=== PATIENT | male | born 1965 ===

== ENCOUNTER 2017-07-21 10:22 | Inpatient (IN) | payer SELFPAY ==
[2017-07-21 10:26] VITALS: BMI 33.1
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
[2017-07-21 11:19] LABS: BASO # 0.1 K/uL (0.0-0.2); BASO % 0.5 % (0.0-2.0); EOS % 0.4 % (0.0-4.0); HEMATOCRIT 46.6 % (35.0-51.0); LYMPH # 2.8 K/uL (1.0-4.3); LYMPH % 25.1 % (20.0-40.0); MEAN CELL VOLUME 79.9 fL (80.0-94.0); MEAN CORPUSCULAR HEMOGLOBIN 26.1 pg (27.0-31.0); MEAN CORPUSCULAR HGB CONC 32.7 g/dL (33.0-37.0); MEAN PLATELET VOLUME 8.8 fL (7.2-11.7); MONO # 0.4 K/uL (0.0-0.8); MONO % 3.9 % (0.0-10.0); RED CELL DISTRIBUTION WIDTH 14.4 % (11.5-14.5)
[2017-07-21 11:26] LABS: ALB/GLOB RATIO 1.4 (1.0-2.1); ALKALINE PHOSPHATASE 92 U/L (38-126); ALT/SGPT 29 U/L (21-72); AST/SGOT 21 U/L (17-59); BILIRUBIN,TOTAL 0.8 mg/dL (0.2-1.3); BLOOD UREA NITROGEN 13 mg/dL (9-20); CALCIUM 9.4 mg/dl (8.6-10.4); CARBON DIOXIDE 28 mmol/L (22-30); CHLORIDE 98 mmol/L (98-107); CHOLESTEROL 135 mg/dL (0-199); GFR AFRICAN-AMERICAN > 60; GLUCOSE,RANDOM 251 mg/dL (75-110); POTASSIUM 3.6 mmol/L (3.6-5.2); SODIUM 139 mmol/L (132-148); TOTAL PROTEIN 6.9 g/dL (6.3-8.3)
[2017-07-21 11:31] LABS: INR 0.9
[2017-07-21] MEDS ORDERED: Iodixanol 320 MG/ML 100 ML BOTTLE IV ONE ×2 (12:00→14:31)
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
[2017-07-21] MEDS: Sodium Chloride 0.9% 1,000 ML IV SCH ×2 (15:00→22:23)
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
--- NOTE | 2017-07-21 16:10 | CT ---
PROCEDURE: CT Angiography of the Brain. HISTORY: cva expressive aphasia COMPARISON: None available. TECHNIQUE: CT angiography of the intracranial and cervical arteries was performed. Coronal and sagittal maximum intensity projection reformated images were generated. This CT exam was performed using one or more of the following dose reduction techniques: Automated exposure control, adjustment of the mA and/or kV according to patient size, and/or use of iterative reconstruction technique. FINDINGS: INTERNAL CEREBRAL ARTERIES: The bilateral internal carotid artery is appear widely patent from their origins to bifurcations bilaterally.. The skull base, petrous, cavernous and supraclinoid segments are bilaterally widely patient. Bilateral Common Carotid Arteries The bilateral common carotid arteries are will widely patent from their origins to bifurcations including the bulbar segments. ANTERIOR CEREBRAL ARTERIES: Unremarkable. A1 and A2 segments are widely patent. Smaller distal branches unremarkable, as visualized. MIDDLE CEREBRAL ARTERIES: Unremarkable. M1 and M2 segments are widely patent. Perisylvian branches grossly symmetric. POSTERIOR CIRCULATION: Basilar Artery: Unremarkable. Distal Vertebral Arteries: Unremarkable. The cervical bilateral vertebral artery segments appear patent though artifacts limit the mid cervical evaluation the right-sided reticular. Posterior Cerebral Arteries: Unremarkable. Posterior Inferior Cerebellar Arteries: The left PICA exhibits persistent configuration with the right PICA unremarkable. ANEURYSM/ VASCULAR MALFORMATIONS: None. OTHER FINDINGS: None. IMPRESSION: Artifacts limit evaluation lower cervical right vertebral artery somewhat however the right vertebral artery does not appear occluded. The vertebrobasilar system is left dominant and the remainder of the cervical and intracranial CT angiography is unremarkable.
[2017-07-21] MEDS ORDERED: Labetalol 25mg/5ml Syringe IVP ONE (16:45)
[2017-07-21] MEDS: levETIRAcetam 1,000 MG in Sodium Chloride 0.9% 100 ML IVPB ONE ×2 (16:51→18:23)
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
[2017-07-21] MEDS: (Novolog) Insulin Aspart, Recombinant 100 u/ml 10 ml vial SC SCH (19:42)
[2017-07-22] MEDS: (Novolog) Insulin Aspart, Recombinant 100 u/ml 10 ml vial SC SCH ×4 (01:27→17:56)
[2017-07-22 05:51] LABS: BASO # 0.1 K/uL (0.0-0.2); BASO % 0.8 % (0.0-2.0); HEMATOCRIT 45.9 % (35.0-51.0); LYMPH # 2.7 K/uL (1.0-4.3); LYMPH % 17.5 % (20.0-40.0); MEAN CELL VOLUME 79.1 fL (80.0-94.0); MEAN CORPUSCULAR HEMOGLOBIN 25.9 pg (27.0-31.0); MEAN CORPUSCULAR HGB CONC 32.7 g/dL (33.0-37.0); MEAN PLATELET VOLUME 9.2 fL (7.2-11.7); MONO # 0.7 K/uL (0.0-0.8); MONO % 4.8 % (0.0-10.0); WHITE BLOOD COUNT 15.2 K/uL (4.8-10.8)
[2017-07-22 06:16] LABS: ALB/GLOB RATIO 1.5 (1.0-2.1); ALKALINE PHOSPHATASE 84 U/L (38-126); ALT/SGPT 28 U/L (21-72); AST/SGOT 11 U/L (17-59); BILIRUBIN,TOTAL 1.1 mg/dL (0.2-1.3); BLOOD UREA NITROGEN 16 mg/dL (9-20); CALCIUM 8.9 mg/dl (8.6-10.4); CARBON DIOXIDE 23 mmol/L (22-30); CHLORIDE 99 mmol/L (98-107); GFR AFRICAN-AMERICAN > 60; GLUCOSE,RANDOM 223 mg/dL (75-110); MAGNESIUM 1.5 mg/dL (1.6-2.3); PHOSPHOROUS 2.5 mg/dL (2.5-4.5); POTASSIUM 3.5 mmol/L (3.6-5.2); SODIUM 135 mmol/L (132-148); TOTAL PROTEIN 6.3 g/dL (6.3-8.3)
[2017-07-22] MEDS: Sodium Chloride 0.9% 1,000 ML IV SCH ×4 (06:20→21:38)
--- NOTE | 2017-07-22 09:08 | CT ---
PROCEDURE: CT HEAD WITHOUT CONTRAST. HISTORY: cva COMPARISON: Head CT 07/21/2017 without contrast. TECHNIQUE: Axial computed tomography images were obtained through the head/brain without intravenous contrast. Radiation dose: Total exam DLP = 1201 mGy-cm. This CT exam was performed using one or more of the following dose reduction techniques: Automated exposure control, adjustment of the mA and/or kV according to patient size, and/or use of iterative reconstruction technique. FINDINGS: HEMORRHAGE: There is now a small intraparenchymal hemorrhage identified in the posterior left occipital lobe without significant mass effect related. The collection measures 3.0 x 1.5 x 1.5 cm (traverse by anteroposterior by superoinferior dimensions), less than 5 cc. Trace local edema is identified. BRAIN: Diffuse chronic microangiopathy are reiterated as well as a small prior infarct left frontal lobe laterally near the vertex. No definite interval cortical edema is appreciate this time. No suspicious extra-axial fluid collection is noted. No midline shift. VENTRICLES: Unremarkable. No hydrocephalus. CALVARIUM: Unremarkable. PARANASAL SINUSES: Mild multifocal ethmoid sinus disease appreciated. MASTOID AIR CELLS: Unremarkable as visualized. No inflammatory changes. OTHER FINDINGS: None. IMPRESSION: 1. An small, interval intraparenchymal hemorrhage identified the left occipital lobe without significant mass effect related. Trace peripheral edema is noted. 2. Mild chronic microangiopathy identified as well as small chronic infarct left frontal lobe. Findings discussed with Dr. Geri barber 07/22/2017 at 8:50 a.m. with written down and read back verification.
[2017-07-22] MEDS: Magnesium Sulfate 1 gm in D5W 1 GM/100 ML BAG IVPB SCH ×2 (09:11→09:42)
[2017-07-22] MEDS ORDERED: levETIRAcetam 500 MG in Sodium Chloride 0.9% 100 ML IVPB SCH (10:00)
--- NOTE | 2017-07-22 10:40 | CP.PCM.PN ---
Subjective - Date & Time of Evaluation Date of Evaluation: 07/22/17 Time of Evaluation: 10:39 - Subjective Subjective: reviewed CT small ICH left parietal occipital lobe no mass effect At this time no indication for neurosurgical involvment If anything changes recall stat Objective - Vital Signs/Intake and Output Vital Signs (last 24 hours): Temp Pulse Resp BP Pulse Ox 98.2 F 56 L 18 144/72 97 07/22/17 08:00 07/22/17 10:00 07/22/17 10:00 07/22/17 09:46 07/22/17 10:00 Intake and Output: 07/22/17 07/22/17 06:59 18:59 Intake Total 1500 650 Output Total 1700 0 Balance -200 650 - Medications Medications: Current Medications Sodium Chloride (Sodium Chloride 0.9%) 1,000 mls @ 125 mls/hr IV .Q8H [facility] Last Admin: 07/22/17 06:20 Dose: 125 mls/hr Levetiracetam 750 mg/ Sodium (Chloride) 107.5 mls @ 420 mls/hr IVPB Q12H [facility] Last Admin: 07/22/17 10:07 Dose: 420 mls/hr Insulin Aspart (Novolog) 0 unit SC Q6H [facility] PRN Reason: Protocol Last Admin: 07/22/17 06:16 Dose: 2 unit Lisinopril (Zestril) 20 mg PO BID [facility] Last Admin: 07/22/17 09:44 Dose: Not Given Ondansetron HCl (Zofran Inj) 4 mg IVP Q4H PRN PRN Reason: Nausea/Vomiting Last Admin: 07/21/17 20:26 Dose: 4 mg Rosuvastatin Calcium (Crestor) 40 mg PO HS [facility] - Labs Labs: 07/22/17 05:45 07/22/17 05:45 PT 10.1 SECONDS (9.7-12.2) 07/21/17 11:05 INR 0.9 07/21/17 11:05 APTT 29 SECONDS (21-34) 07/21/17 11:05
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
--- NOTE | 2017-07-22 15:11 | CP.PCM.PN ---
Subjective - Date & Time of Evaluation Date of Evaluation: 07/22/17 Time of Evaluation: 11:00 - Subjective Subjective: Patient seen and examined in ICU. Patient appears confused. Family is present at bedside. Objective - Vital Signs/Intake and Output Vital Signs (last 24 hours): Temp Pulse Resp BP Pulse Ox 97.9 F 59 L 18 150/76 94 L 07/22/17 12:00 07/22/17 15:00 07/22/17 15:00 07/22/17 14:45 07/22/17 15:00 Intake and Output: 07/22/17 07/22/17 06:59 18:59 Intake Total 1500 1375 Output Total 1700 400 Balance -200 975 - Medications Medications: Current Medications Famotidine (Pepcid) 20 mg IVP DAILY [facility] Last Admin: 07/22/17 12:57 Dose: 20 mg Sodium Chloride (Sodium Chloride 0.9%) 1,000 mls @ 125 mls/hr IV .Q8H [facility] Last Admin: 07/22/17 12:57 Dose: 125 mls/hr Levetiracetam 750 mg/ Sodium (Chloride) 107.5 mls @ 420 mls/hr IVPB Q12H [facility] Last Admin: 07/22/17 10:07 Dose: 420 mls/hr Insulin Aspart (Novolog) 0 unit SC Q6H [facility] PRN Reason: Protocol Last Admin: 07/22/17 12:09 Dose: 3 unit Lisinopril (Zestril) 20 mg PO BID [facility] Last Admin: 07/22/17 09:44 Dose: Not Given Ondansetron HCl (Zofran Inj) 4 mg IVP Q4H PRN PRN Reason: Nausea/Vomiting Last Admin: 07/21/17 20:26 Dose: 4 mg Rosuvastatin Calcium (Crestor) 40 mg PO HS [facility] - Labs Labs: 07/22/17 05:45 07/22/17 05:45 PT 10.1 SECONDS (9.7-12.2) 07/21/17 11:05 INR 0.9 07/21/17 11:05 APTT 29 SECONDS (21-34) 07/21/17 11:05 - Head Exam Head Exam: ATRAUMATIC, NORMOCEPHALIC - Eye Exam Eye Exam: Normal appearance, PERRL - ENT Exam ENT Exam: Mucous Membranes Moist - Respiratory Exam Respiratory Exam: Clear to Ausculation Bilateral - Cardiovascular Exam Cardiovascular Exam: REGULAR RHYTHM, +S1, +S2 - GI/Abdominal Exam GI & Abdominal Exam: Soft. absent: Tenderness - Extremities Exam Extremities Exam: absent: Pedal Edema - Neurological Exam Neurological Exam: Alert, Altered Additional comments: Limited neurological exam because patient is noncooperative Assessment and Plan (1) Intracranial hemorrhage Assessment & Plan: Repeat CAT scan shows hemorrhage in the occipital region. Neurosurgery consultation was requested by ICU team. Neurosurgery recommends no intervention at this time. I discussed the plan of care with the ICU attending. No emergent intervention needed. Continue to observe. Status: Acute (2) Expressive aphasia Assessment & Plan: Possibly secondary to previous infarct. Continue to monitor. Status: Acute (3) Seizure Assessment & Plan: Patient started on medication for seizures. Possibly patient was noncompliant with the medication prior to this episode of for seizure versus CVA. Status: Acute - Assessment and Plan (Free Text) Plan: I discussed the plan of care with the ICU attending. Continue management as per ICU team.
--- NOTE | 2017-07-22 19:01 | CP.PCM.PN ---
Subjective - Date & Time of Evaluation Date of Evaluation: 07/22/17 Time of Evaluation: 18:56 - Subjective Subjective: Mr. Box was seen and examined today in the ICU at bedside. He continues to be somnolent, but is easily aroused. He follows commands, but inconsistently and has a receptive as well as productive aphasia. Repeat CT head showed a small left occipital hemorrhage. No reported seizure activity. No acute events overnight. Objective - Vital Signs/Intake and Output Vital Signs (last 24 hours): Temp Pulse Resp BP Pulse Ox 98.3 F 62 21 151/78 H 95 07/22/17 16:00 07/22/17 18:50 07/22/17 18:50 07/22/17 18:46 07/22/17 18:50 Intake and Output: 07/22/17 07/22/17 06:59 18:59 Intake Total 1500 1625 Output Total 1700 600 Balance -200 1025 - Medications Medications: Current Medications Famotidine (Pepcid) 20 mg IVP DAILY [facility] Last Admin: 07/22/17 12:57 Dose: 20 mg Sodium Chloride (Sodium Chloride 0.9%) 1,000 mls @ 125 mls/hr IV .Q8H [facility] Last Admin: 07/22/17 17:50 Dose: Not Given Levetiracetam 750 mg/ Sodium (Chloride) 107.5 mls @ 420 mls/hr IVPB Q12H [facility] Last Admin: 07/22/17 10:07 Dose: 420 mls/hr Insulin Aspart (Novolog) 0 unit SC Q6H [facility] PRN Reason: Protocol Last Admin: 07/22/17 17:56 Dose: 2 unit Lisinopril (Zestril) 20 mg PO BID [facility] Last Admin: 07/22/17 17:50 Dose: Not Given Ondansetron HCl (Zofran Inj) 4 mg IVP Q4H PRN PRN Reason: Nausea/Vomiting Last Admin: 07/21/17 20:26 Dose: 4 mg Rosuvastatin Calcium (Crestor) 40 mg PO HS [facility] - Labs Labs: 07/22/17 05:45 07/22/17 05:45 PT 10.1 SECONDS (9.7-12.2) 07/21/17 11:05 INR 0.9 07/21/17 11:05 APTT 29 SECONDS (21-34) 07/21/17 11:05 - Neurological Exam Neurological Exam: Abnormal Gait, Altered, Awake, CN II-XII Intact Neuro motor strength exam: Left Upper Extremity: 5, Right Upper Extremity: 4, Left Lower Extremity: 5, Right Lower Extremity: 4 Additional comments: NIHSS= 8 Assessment and Plan (1) Encephalopathy acute Assessment & Plan: This could be due to seizure and post-ictal state, new area of hemorrhage, new stroke or possibly resurgence of previous stroke symptoms. Will continue conservative management and obtain an MRI of the brain as well as EEG. Status: Acute (2) Intracranial hemorrhage Assessment & Plan: No neurosurgical indication. Clinically stable. Will repeat CT head to evaluate for any progression. Keep HOB elevated, control serum glucose, avoid dextrose containing fluids, NPO till swallow eval, give NS at 100 mL/hr for maintenance. Status: Acute
--- NOTE | 2017-07-22 21:26 | CT ---
EXAM: CT Head Without Intravenous Contrast CLINICAL HISTORY: 52 years old, male; Condition or disease; Other: Bleed; Additional info: F/u intraparyenchymal bleeding TECHNIQUE: Axial computed tomography images of the head/brain without intravenous contrast. All CT scans at this facility use one or more dose reduction techniques, viz.: automated exposure control; ma/kV adjustment per patient size (including targeted exams where dose is matched to indication; i.e. head); or iterative reconstruction technique. Coronal and sagittal reformatted images were created and reviewed. COMPARISON: CT - HEAD W/O CONTRAST 07/22/2017 8:31:32 AM FINDINGS: Brain: Two stable foci of increased attenuation, when compared with 07/22/2017 examination of the head 8:31 AM. The first is located within the left posterior occipital lobe measuring 3 x 1.5 cm, unchanged from prior. The second is located within the right posterior parietal lobe (series 4, image 38) measuring 9 x 8 mm, also unchanged. Age-appropriate periventricular white matter disease. Trace surrounding vasogenic edema. Ventricles: Age-appropriate ventriculomegaly. Bones: No acute displaced fracture. Sinuses: Unremarkable as visualized. No acute sinusitis. Mastoid air cells: Unremarkable as visualized. No mastoid effusion. IMPRESSION: Two stable foci of intracranial hemorrhage, when compared with examination approximately 12 hours earlier, as detailed above. Trace surrounding vasogenic edema.
[2017-07-23] MEDS: (Novolog) Insulin Aspart, Recombinant 100 u/ml 10 ml vial SC SCH ×4 (00:05→18:02)
[2017-07-23] MEDS: Sodium Chloride 0.9% 1,000 ML IV SCH ×2 (05:37→10:25)
[2017-07-23] MEDS ORDERED: (Lantus) Insulin Glargine, Recombinant SC STA (06:01)
[2017-07-23] MEDS ORDERED: (Novolin N) Insulin Human Isophane (NPH) 100 u/ml 10 ml vial SC STA (06:01)
[2017-07-23 06:16] LABS: BASO % 0.1 % (0.0-2.0); LYMPH # 3.4 K/uL (1.0-4.3); LYMPH % 25.1 % (20.0-40.0); MEAN CELL VOLUME 79.9 fL (80.0-94.0); MEAN CORPUSCULAR HEMOGLOBIN 25.9 pg (27.0-31.0); MEAN CORPUSCULAR HGB CONC 32.5 g/dL (33.0-37.0); MEAN PLATELET VOLUME 9.6 fL (7.2-11.7); MONO % 7.5 % (0.0-10.0); NRBC % 0.1 % (0.0-2.0); RED CELL DISTRIBUTION WIDTH 14.3 % (11.5-14.5); WHITE BLOOD COUNT 13.5 K/uL (4.8-10.8)
[2017-07-23 06:40] LABS: ALB/GLOB RATIO 1.3 (1.0-2.1); ALKALINE PHOSPHATASE 91 U/L (38-126); ALT/SGPT 30 U/L (21-72); AST/SGOT 19 U/L (17-59); BILIRUBIN,TOTAL 1.5 mg/dL (0.2-1.3); BLOOD UREA NITROGEN 15 mg/dL (9-20); CALCIUM 8.8 mg/dl (8.6-10.4); CARBON DIOXIDE 24 mmol/L (22-30); CHLORIDE 100 mmol/L (98-107); GFR AFRICAN-AMERICAN > 60; GLUCOSE,RANDOM 209 mg/dL (75-110); PHOSPHOROUS 2.1 mg/dL (2.5-4.5); POTASSIUM 3.4 mmol/L (3.6-5.2); SODIUM 139 mmol/L (132-148); TOTAL PROTEIN 6.5 g/dL (6.3-8.3)
[2017-07-23] MEDS ORDERED: Potassium Phosphate 15 MMOLE in Sodium Chloride 0.9% 250 ML IVPB ONE (09:15)
--- NOTE | 2017-07-23 11:37 | CP.PCM.PN ---
Subjective - Date & Time of Evaluation Date of Evaluation: 07/23/17 Time of Evaluation: 11:30 - Subjective Subjective: Family member present at bedside Patient was somnolent and confused when I saw and examined him. He does wake up and try to follow some simple commands. Per family present this mental status is not changed from yesterday. Patient was able to lift up both legs greater than five seconds. He did not plantar or dorsiflex the feet when asked. He did squeeze my hand on his left hand however was not able to with the right. He was not able to hold his right arm up against gravity on exam - however I later observed him moving his right arm on his own later. He was able to open his eyes but could not say if he had blurry vision or difficulty with seeing. He remains NPO at this time A 3rd head CT was done last night and shows the left occipital area hemmorage is not changed from before 3 x 1.5 cm, and the other area in the right postior parietal lobe being 9 x 8mm Objective - Vital Signs/Intake and Output Vital Signs (last 24 hours): Temp Pulse Resp BP Pulse Ox 98.4 F 65 22 151/71 H 94 L 07/23/17 04:00 07/23/17 07:00 07/23/17 07:00 07/23/17 06:46 07/23/17 07:00 Intake and Output: 07/23/17 07/23/17 06:59 18:59 Intake Total 1500 125 Output Total 1000 Balance 500 125 - Medications Medications: Current Medications Famotidine (Pepcid) 20 mg IVP DAILY [facility] Last Admin: 07/23/17 10:24 Dose: 20 mg Levetiracetam 750 mg/ Sodium (Chloride) 107.5 mls @ 420 mls/hr IVPB Q12H [facility] Last Admin: 07/23/17 10:23 Dose: 420 mls/hr Potassium Phosphate 15 mmole/ (Sodium Chloride) 255 mls @ 42.5 mls/hr IVPB ONCE ONE Stop: 07/23/17 15:14 Last Admin: 07/23/17 10:23 Dose: 42.5 mls/hr Sodium Chloride (Sodium Chloride 0.9%) 1,000 mls @ 50 mls/hr IV .Q20H [facility] Last Admin: 09/04/17 10:25 Dose: 50 mls/hr Insulin Aspart (Novolog) 0 unit SC Q6H [facility] PRN Reason: Protocol Last Admin: 07/23/17 05:20 Dose: 1 unit Lisinopril (Zestril) 20 mg PO BID [facility] Last Admin: 07/23/17 10:24 Dose: 20 mg Nitroglycerin (Nitro-Bid 2% Oint) 1 ea TOP Q6 [facility] Ondansetron HCl (Zofran Inj) 4 mg IVP Q4H PRN PRN Reason: Nausea/Vomiting Last Admin: 07/21/17 20:26 Dose: 4 mg Rosuvastatin Calcium (Crestor) 40 mg PO HS [facility] Last Admin: 07/22/17 21:07 Dose: Not Given - Labs Labs: 07/23/17 06:12 07/23/17 06:12 PT 10.1 SECONDS (9.7-12.2) 07/21/17 11:05 INR 0.9 07/21/17 11:05 APTT 29 SECONDS (21-34) 07/21/17 11:05 - Constitutional Appears: Confused - Eye Exam Eye Exam: absent: EOMI - ENT Exam ENT Exam: Mucous Membranes Moist - Respiratory Exam Respiratory Exam: Clear to Ausculation Bilateral, NORMAL BREATHING PATTERN - Cardiovascular Exam Cardiovascular Exam: REGULAR RHYTHM - GI/Abdominal Exam GI & Abdominal Exam: Soft, Normal Bowel Sounds. absent: Guarding, Rigid, Tenderness - Neurological Exam Neurological Exam: Alert, Altered, Awake. absent: Oriented x3 Neuro motor strength exam: Left Upper Extremity: 4, Right Upper Extremity: 3, Left Lower Extremity: 4, Right Lower Extremity: 4 - Psychiatric Exam Psychiatric exam: Depressed - Skin Skin Exam: Normal Color, Warm Assessment and Plan - Assessment and Plan (Free Text) Assessment: Assessment and Plan (1) Intracranial hemorrhage 07/23: The third CT last night and shows the left occipital area hemmorage is not changed from before 3 x 1.5 cm, and the other area in the right postior parietal lobe being 9 x 8mm, unchanged from previous. Avoid ASA, heparin, lovenox From before neurosurgery consultation was requested by ICU team. Neurosurgery recommends no intervention at this time. (2) Expressive aphasia 07/23: Remains NPO at this time. He is being evaluated by speech and swallow Possibly secondary to previous infarct. Continue to monitor. (3) Seizure Patient started on medication for seizures. Possibly patient was noncompliant with the medication prior to this episode of for seizure versus CVA. (4) Diabetes 07/23: Hgb A1C returned and was 10. Per family it has been higher in the past (5) HTN (6) Encephalopathy acute 07/23: Continue to monitor. This maybe from CVA or from seizure activity. Patient is on keppra at this time
[2017-07-23] MEDS: Nitroglycerin 2% Ointment Foilpak UD TOP SCH ×2 (13:00→18:03)
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
[2017-07-24] MEDS: Nitroglycerin 2% Ointment Foilpak UD TOP SCH ×4 (00:01→17:32)
[2017-07-24] MEDS: (Novolog) Insulin Aspart, Recombinant 100 u/ml 10 ml vial SC SCH ×4 (00:03→17:33)
[2017-07-24] MEDS: Sodium Chloride 0.9% 1,000 ML IV SCH (05:23)
[2017-07-24 06:31] LABS: BASO % 0.1 % (0.0-2.0); HEMATOCRIT 46.2 % (35.0-51.0); LYMPH # 2.9 K/uL (1.0-4.3); LYMPH % 22.5 % (20.0-40.0); MEAN CELL VOLUME 80.4 fL (80.0-94.0); MEAN CORPUSCULAR HEMOGLOBIN 25.9 pg (27.0-31.0); MEAN CORPUSCULAR HGB CONC 32.2 g/dL (33.0-37.0); MEAN PLATELET VOLUME 9.5 fL (7.2-11.7); MONO # 0.9 K/uL (0.0-0.8); MONO % 7.1 % (0.0-10.0); RED CELL DISTRIBUTION WIDTH 14.3 % (11.5-14.5); WHITE BLOOD COUNT 12.7 K/uL (4.8-10.8)
[2017-07-24 07:06] LABS: ALB/GLOB RATIO 1.2 (1.0-2.1); ALKALINE PHOSPHATASE 83 U/L (38-126); ALT/SGPT 24 U/L (21-72); AST/SGOT 17 U/L (17-59); BILIRUBIN,TOTAL 1.8 mg/dL (0.2-1.3); BLOOD UREA NITROGEN 20 mg/dL (9-20); CALCIUM 8.6 mg/dl (8.6-10.4); CARBON DIOXIDE 21 mmol/L (22-30); CHLORIDE 104 mmol/L (98-107); GFR AFRICAN-AMERICAN > 60; GLUCOSE,RANDOM 204 mg/dL (75-110); PHOSPHOROUS 2.7 mg/dL (2.5-4.5); POTASSIUM 3.4 mmol/L (3.6-5.2); SODIUM 140 mmol/L (132-148); TOTAL PROTEIN 6.4 g/dL (6.3-8.3)
[2017-07-24] MEDS ORDERED: Potassium Ch 20mEq in D5W 1,000 ML IV SCH (08:15)
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
--- NOTE | 2017-07-24 12:24 | CARD ---
APPROVED REPORT EXAM: Two-dimensional and M-mode echocardiogram with Doppler and color Doppler. Other Information Quality : FairRhythm : NSR INDICATION CVA/TIA RISK FACTORS Hypertension Diabetes M-Mode DIMENSIONS RVDd0.83 (2.1-3.2cm)Left Atrium (MM)3.30 (2.5-4.0cm) IVSd1.67 (0.7-1.1cm)Aortic Root3.37 (2.2-3.7cm) LVDd5.97 (4.0-5.6cm)Aortic Cusp Exc.2.39 (1.5-2.0cm) PWd1.08 (0.7-1.1cm)FS (%) 30 % LVDs4.20 (2.0-3.8cm)LVEF (%)50 (>50%) Mitral Valve MV E Vdcixbmx38.7cm/sMV A Azaephac35.4cm/sE/A ratio1.2 TDI E/Lateral E'0.0E/Medial E'0.0 Tricuspid Valve TR Peak [id number] Peak [id number] LEFT VENTRICLE The Left Ventricle is borderline dilated. There is moderate concentric left ventricular hypertrophy. Left ventricle systolic function is borderline. There is normal LV segmental wall motion. Transmitral Doppler flow pattern is Grade II-pseudonormal filling dynamics. RIGHT VENTRICLE The right ventricle is normal size. There is normal right ventricular wall thickness. The right ventricular systolic function is normal. ATRIA The left atrium size is normal. The right atrium size is normal. AORTIC VALVE The aortic valve is not well visualized. No aortic regurgitation is present. There is no aortic valvular stenosis. MITRAL VALVE The mitral valve is mildly thickened. TRICUSPID VALVE There is mild pulmonary hypertension. GREAT VESSELS The aortic root displays moderate sclerocalcific changes of the aortic root. The IVC is dilated. PERICARDIAL EFFUSION There is no pericardial effusion. <Conclusion> The Left Ventricle is borderline dilated. There is moderate concentric left ventricular hypertrophy. Left ventricle systolic function is borderline. There is normal LV segmental wall motion. Transmitral Doppler flow pattern is Grade II-pseudonormal filling dynamics. The aortic root displays moderate sclerocalcific changes of the aortic root.
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
[2017-07-24] MEDS ORDERED: Labetalol 25mg/5ml Syringe IVP STA (17:02)
[2017-07-24] MEDS ORDERED: (Lantus) Insulin Glargine, Recombinant SC SCH (22:00)
[2017-07-25] MEDS: Nitroglycerin 2% Ointment Foilpak UD TOP SCH ×4 (06:10→18:10)
[2017-07-25] MEDS: Sodium Chloride 0.9% 1,000 ML IV SCH ×2 (06:10→21:35)
[2017-07-25] MEDS: (Novolog) Insulin Aspart, Recombinant 100 u/ml 10 ml vial SC SCH ×4 (06:10→18:10)
[2017-07-25 06:29] LABS: BASO % 0.1 % (0.0-2.0); EOS % 0.3 % (0.0-4.0); HEMATOCRIT 42.4 % (35.0-51.0); LYMPH # 3.6 K/uL (1.0-4.3); LYMPH % 31.2 % (20.0-40.0); MEAN CELL VOLUME 80.1 fL (80.0-94.0); MEAN CORPUSCULAR HEMOGLOBIN 26.7 pg (27.0-31.0); MEAN CORPUSCULAR HGB CONC 33.4 g/dL (33.0-37.0); MEAN PLATELET VOLUME 9.5 fL (7.2-11.7); MONO # 0.9 K/uL (0.0-0.8); MONO % 7.5 % (0.0-10.0); RED CELL DISTRIBUTION WIDTH 14.4 % (11.5-14.5); WHITE BLOOD COUNT 11.5 K/uL (4.8-10.8)
[2017-07-25 06:42] LABS: ALKALINE PHOSPHATASE 79 U/L (38-126); ALT/SGPT 28 U/L (21-72); AST/SGOT 11 U/L (17-59); BILIRUBIN,TOTAL 1.6 mg/dL (0.2-1.3); BLOOD UREA NITROGEN 23 mg/dL (9-20); CALCIUM 8.7 mg/dl (8.6-10.4); CARBON DIOXIDE 24 mmol/L (22-30); CHLORIDE 106 mmol/L (98-107); GFR AFRICAN-AMERICAN > 60; GLUCOSE,RANDOM 199 mg/dL (75-110); MAGNESIUM 2.2 mg/dL (1.6-2.3); PHOSPHOROUS 3.3 mg/dL (2.5-4.5); POTASSIUM 3.3 mmol/L (3.6-5.2); SODIUM 140 mmol/L (132-148); TOTAL PROTEIN 5.8 g/dL (6.3-8.3)
[2017-07-25 07:02] LABS: ALB/GLOB RATIO 1.2 (1.0-2.1)
[2017-07-25] MEDS ORDERED: Potassium Chloride 20 mEq ER Tab PO ONE ×2 (08:50→13:00)
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
[2017-07-25] MEDS ORDERED: Potassium Chl 40 mEq in D5-1/2 1,000 ML IV SCH (09:45)
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
[2017-07-25] MEDS: (Lantus) Insulin Glargine, Recombinant SC SCH (21:50)
[2017-07-25] MEDS ORDERED: (Novolog) Insulin Aspart, Recombinant 100 u/ml 10 ml vial SC SCH (22:00)
[2017-07-26] MEDS: Nitroglycerin 2% Ointment Foilpak UD TOP SCH ×4 (00:41→18:07)
[2017-07-26 07:45] LABS: BASO % 0.3 % (0.0-2.0); EOS # 0.2 K/uL (0.0-0.7); EOS % 1.7 % (0.0-4.0); HEMATOCRIT 44.8 % (35.0-51.0); LYMPH % 27.6 % (20.0-40.0); MEAN CELL VOLUME 80.5 fL (80.0-94.0); MEAN CORPUSCULAR HEMOGLOBIN 26.4 pg (27.0-31.0); MEAN CORPUSCULAR HGB CONC 32.8 g/dL (33.0-37.0); MEAN PLATELET VOLUME 9.6 fL (7.2-11.7); MONO # 0.8 K/uL (0.0-0.8); MONO % 7.4 % (0.0-10.0); RED CELL DISTRIBUTION WIDTH 14.3 % (11.5-14.5); WHITE BLOOD COUNT 10.9 K/uL (4.8-10.8)
[2017-07-26 08:03] LABS: ALB/GLOB RATIO 1.2 (1.0-2.1); ALKALINE PHOSPHATASE 92 U/L (38-126); ALT/SGPT 26 U/L (21-72); AST/SGOT 13 U/L (17-59); BILIRUBIN,TOTAL 1.9 mg/dL (0.2-1.3); BLOOD UREA NITROGEN 15 mg/dL (9-20); CALCIUM 8.8 mg/dl (8.6-10.4); CARBON DIOXIDE 26 mmol/L (22-30); CHLORIDE 104 mmol/L (98-107); GFR AFRICAN-AMERICAN > 60; GLUCOSE,RANDOM 170 mg/dL (75-110); PHOSPHOROUS 3.2 mg/dL (2.5-4.5); POTASSIUM 3.2 mmol/L (3.6-5.2); SODIUM 143 mmol/L (132-148); TOTAL PROTEIN 6.3 g/dL (6.3-8.3)
[2017-07-26] MEDS: (Novolog) Insulin Aspart, Recombinant 100 u/ml 10 ml vial SC SCH ×4 (09:49→21:52)
[2017-07-26] MEDS: Potassium Chloride 20 mEq ER Tab PO SCH (09:56)
--- NOTE | 2017-07-26 14:00 | CP.PCM.PN ---
<Soraya Mccray - Last Filed: 07/26/17 13:58> Subjective - Date & Time of Evaluation Date of Evaluation: 07/26/17 Time of Evaluation: 07:00 - Subjective Subjective: PGY1-medicine note- Dr. Moss's Service Patient seen and examined at bedside. He appears to have no complaints but on further questioning he is unable to answer many questions due to some expressive aphasia so a full ROS is unobtainable. Patient is able to state his birthday. Patient is unable to say what day it is or where he is. Objective - Vital Signs/Intake and Output Vital Signs (last 24 hours): Temp Pulse Resp BP Pulse Ox 97.4 F L 50 L 20 159/90 H 95 07/26/17 08:00 07/26/17 08:00 07/26/17 08:00 07/26/17 08:00 07/26/17 08:00 Intake and Output: 07/26/17 07/26/17 06:59 18:59 Intake Total 300 Output Total 1600 Balance -1300 - Medications Medications: Current Medications Famotidine (Pepcid) 20 mg IVP DAILY [facility] Last Admin: 07/26/17 09:59 Dose: Not Given Hydralazine HCl (Apresoline) 25 mg PO TID [facility] Hydralazine HCl (Apresoline) 10 mg IVP Q6H PRN PRN Reason: Systolic Blood Pressure Sodium Chloride (Sodium Chloride 0.9%) 1,000 mls @ 50 mls/hr IV .Q20H [facility] Last Admin: 07/25/17 21:35 Dose: Not Given Insulin Aspart (Novolog) 0 unit SC QID [facility] PRN Reason: Protocol Last Admin: 07/26/17 13:24 Dose: 1 unit Insulin Glargine (Lantus) 20 unit SC HS [facility] Last Admin: 07/25/17 21:50 Dose: Not Given Levetiracetam (Keppra) 750 mg PO Q12 [facility] Last Admin: 07/26/17 09:50 Dose: 750 mg Lisinopril (Zestril) 20 mg PO BID [facility] Last Admin: 07/26/17 09:50 Dose: 20 mg Nitroglycerin (Nitro-Bid 2% Oint) 1 ea TOP Q6 [facility] Last Admin: 07/26/17 12:21 Dose: Not Given Ondansetron HCl (Zofran Inj) 4 mg IVP Q4H PRN PRN Reason: Nausea/Vomiting Last Admin: 07/21/17 20:26 Dose: 4 mg Potassium Chloride (K-Dur 20 Meq Er Tab) 40 meq PO DAILY [facility] Last Admin: 07/26/17 09:56 Dose: 40 meq Rosuvastatin Calcium (Crestor) 40 mg PO HS [facility] Last Admin: 07/25/17 21:47 Dose: 40 mg - Labs Labs: 07/26/17 07:35 07/26/17 07:35 PT 10.1 SECONDS (9.7-12.2) 07/21/17 11:05 INR 0.9 07/21/17 11:05 APTT 29 SECONDS (21-34) 07/21/17 11:05 - Constitutional Appears: Well, Non-toxic, No Acute Distress - Head Exam Head Exam: ATRAUMATIC, NORMAL INSPECTION, NORMOCEPHALIC - Eye Exam Eye Exam: EOMI, Normal appearance - ENT Exam ENT Exam: Mucous Membranes Moist - Respiratory Exam Respiratory Exam: Clear to Ausculation Bilateral, NORMAL BREATHING PATTERN. absent: Rales, Rhonchi, Wheezes, Respiratory Distress, Stridor - Cardiovascular Exam Cardiovascular Exam: REGULAR RHYTHM, RRR - GI/Abdominal Exam GI & Abdominal Exam: Soft, Normal Bowel Sounds - Extremities Exam Extremities Exam: Full ROM, Normal Inspection. absent: Pedal Edema - Neurological Exam Neurological Exam: Alert, Awake. absent: Oriented x3 - Psychiatric Exam Psychiatric exam: Normal Affect, Normal Mood - Skin Skin Exam: Intact, Normal Color, Warm Assessment and Plan - Assessment and Plan (Free Text) Assessment: (1) Intracranial hemorrhage 07/26: Remains confused, alert, follows some simple commands. able to state his birthday today. 07/24: At this time the patient still appears confused. Only follows some commands. Appears to have neglect right side. 07/23: The third CT last night and shows the left occipital area hemmorage is not changed from before 3 x 1.5 cm, and the other area in the right postior parietal lobe being 9 x 8mm, unchanged from previous. Avoid ASA, heparin, lovenox From before neurosurgery consultation was requested by ICU team. Neurosurgery recommends no intervention at this time. (2) Expressive aphasia 07/26: for certain simple questions that can be answered yes or no patient answers quickly, for more complex questions it takes the patient time to try to answer. patient unable to answer certain questions 07/24: Speech is still very slow 07/23: Remains NPO at this time. He is being evaluated by speech and swallow Possibly secondary to previous infarct. Continue to monitor. (3) Seizure Patient started on medication for seizures(keppra 750mg po q12) Possibly patient was noncompliant with the medication prior to this episode of for seizure versus CVA. (4) Diabetes 07/23: Hgb A1C-10. Per family it has been higher in the past (5) HTN 07/26: hydralazine 25mg po TID added on 07/26 and hydralazine 10 mg IVP q6h PRN if systolic >160 (added on 07/26) 07/25: Currently stable at this time, systolics mostly 120s to 140s 07/24: Continue to control BP to prevent worsening of hemorrhage (6) Encephalopathy acute 07/26: patient awake and alert but not oriented 07/24: More awake, but still confused 07/23: Continue to monitor. This maybe from CVA or from seizure activity. Patient is on keppra at this time <Reno Moss H - Last Filed: 07/26/17 17:52> Objective - Vital Signs/Intake and Output Vital Signs (last 24 hours): Temp Pulse Resp BP Pulse Ox 98.5 F 57 L 18 157/87 H 100 07/26/17 15:39 07/26/17 15:39 07/26/17 15:39 07/26/17 15:39 07/26/17 15:39 Intake and Output: 07/26/17 07/26/17 06:59 18:59 Intake Total 300 Output Total 1600 Balance -1300 - Medications Medications: Current Medications Famotidine (Pepcid) 20 mg IVP DAILY [facility] Last Admin: 07/26/17 09:59 Dose: Not Given Hydralazine HCl (Apresoline) 25 mg PO TID [facility] Last Admin: 07/26/17 14:24 Dose: 25 mg Hydralazine HCl (Apresoline) 10 mg IVP Q6H PRN PRN Reason: Systolic Blood Pressure >160 Sodium Chloride (Sodium Chloride 0.9%) 1,000 mls @ 50 mls/hr IV .Q20H [facility] Last Admin: 07/25/17 21:35 Dose: Not Given Insulin Aspart (Novolog) 0 unit SC QID [facility] PRN Reason: Protocol Last Admin: 07/26/17 13:24 Dose: 1 unit Insulin Glargine (Lantus) 20 unit SC HS [facility] Last Admin: 07/25/17 21:50 Dose: Not Given Levetiracetam (Keppra) 750 mg PO Q12 [facility] Last Admin: 07/26/17 09:50 Dose: 750 mg Lisinopril (Zestril) 20 mg PO BID [facility] Last Admin: 07/26/17 09:50 Dose: 20 mg Nitroglycerin (Nitro-Bid 2% Oint) 1 ea TOP Q6 [facility] Last Admin: 07/26/17 12:21 Dose: Not Given Ondansetron HCl (Zofran Inj) 4 mg IVP Q4H PRN PRN Reason: Nausea/Vomiting Last Admin: 07/21/17 20:26 Dose: 4 mg Potassium Chloride (K-Dur 20 Meq Er Tab) 40 meq PO DAILY [facility] Last Admin: 07/26/17 09:56 Dose: 40 meq Rosuvastatin Calcium (Crestor) 40 mg PO [facility] Last Admin: 07/25/17 21:47 Dose: 40 mg - Labs Labs: 07/26/17 07:35 07/26/17 07:35 PT 10.1 SECONDS (9.7-12.2) 07/21/17 11:05 INR 0.9 07/21/17 11:05 APTT 29 SECONDS (21-34) 07/21/17 11:05 Attending/Attestation - Attestation I have personally seen and examined this patient.: Yes I have fully participated in the care of the patient.: Yes I have reviewed all pertinent clinical information, including history, physical exam and plan: Yes Notes (Text): 07/26/17 17:52 Medical attending: Patient was seen and examined by me, agrees the above note by medical apparatus model maker. The patient is now out of the ICU on the medical floors. When we saw him he appeared to be very awake and alert. He initially says "I feel fine" however it immediately becomes apparent that the patient has severe memory loss. He is not able to tell us where he is at, and he has difficulty recalling his birthday as well. After a prolonged. He is able to tell us his birthday correctly. And after prolonged period of time he's able to tell us his name correctly as well. It is possible that he now has difficulty trying to find the correct words, so tomorrow we'll see if he is able to write down the correct answers are not. However my suspicion is that he does in fact have some type of encephalopathy following events that led him to come to the hospital. We'll stop with the Gutiérrez catheter today, With regards to his hypertension, we are starting hydralazine 25 by mouth 3 times a day as well as hydralazine 10 mg IV push if greater than 160s systolic. Reviewed and continue with the lisinopril as well thank you Reno Moss
[2017-07-26] MEDS: (Lantus) Insulin Glargine, Recombinant SC SCH (21:28)
[2017-07-27] MEDS: Nitroglycerin 2% Ointment Foilpak UD TOP SCH ×4 (00:12→17:48)
[2017-07-27 06:38] LABS: BASO % 0.3 % (0.0-2.0); EOS # 0.3 K/uL (0.0-0.7); EOS % 2.1 % (0.0-4.0); HEMATOCRIT 43.8 % (35.0-51.0); LYMPH # 4.2 K/uL (1.0-4.3); LYMPH % 33.7 % (20.0-40.0); MEAN CELL VOLUME 80.8 fL (80.0-94.0); MEAN CORPUSCULAR HEMOGLOBIN 26.7 pg (27.0-31.0); MEAN PLATELET VOLUME 9.3 fL (7.2-11.7); MONO # 0.9 K/uL (0.0-0.8); MONO % 7.2 % (0.0-10.0); RED CELL DISTRIBUTION WIDTH 14.7 % (11.5-14.5); WHITE BLOOD COUNT 12.5 K/uL (4.8-10.8)
[2017-07-27 06:58] LABS: ALB/GLOB RATIO 1.3 (1.0-2.1); ALKALINE PHOSPHATASE 79 U/L (38-126); ALT/SGPT 23 U/L (21-72); AST/SGOT 13 U/L (17-59); BILIRUBIN,TOTAL 1.6 mg/dL (0.2-1.3); BLOOD UREA NITROGEN 19 mg/dL (9-20); CALCIUM 8.9 mg/dl (8.6-10.4); CARBON DIOXIDE 29 mmol/L (22-30); CHLORIDE 102 mmol/L (98-107); GFR AFRICAN-AMERICAN > 60; GLUCOSE,RANDOM 172 mg/dL (75-110); PHOSPHOROUS 3.8 mg/dL (2.5-4.5); POTASSIUM 3.7 mmol/L (3.6-5.2); SODIUM 139 mmol/L (132-148); TOTAL PROTEIN 5.8 g/dL (6.3-8.3)
[2017-07-27] MEDS: Potassium Chloride 20 mEq ER Tab PO SCH (10:27)
[2017-07-27] MEDS: (Novolog) Insulin Aspart, Recombinant 100 u/ml 10 ml vial SC SCH ×4 (10:37→22:31)
--- NOTE | 2017-07-27 15:50 | CP.PCM.PN ---
<Soraya Mccray - Last Filed: 07/27/17 15:48> Subjective - Date & Time of Evaluation Date of Evaluation: 07/27/17 Time of Evaluation: 07:00 - Subjective Subjective: PGY1- medicine note- Dr. Moss's Service Patient seen and examined at bedside and in no acute distress. Patient able to walk around the [place] and to the bathroom. Patient urinating okay without the mendez. Patient still unable to say where he is when asked. Patient asked to write down where he is and he just made scribbles on the paper. Patient able to state his birthday again today. Patient denies chest pain, shortness of breath, abdominal pain, n/v, c/d. Objective - Vital Signs/Intake and Output Vital Signs (last 24 hours): Temp Pulse Resp BP Pulse Ox 97.6 F 50 L 20 139/84 20 L 07/27/17 08:51 07/27/17 08:51 07/27/17 06:15 07/27/17 08:51 07/27/17 08:51 Intake and Output: 07/27/17 07/27/17 06:59 18:59 Output Total 1 Balance -1 - Medications Medications: Current Medications Famotidine (Pepcid) 20 mg IVP DAILY [facility] Last Admin: 07/27/17 11:55 Dose: Not Given Hydralazine HCl (Apresoline) 25 mg PO TID [facility] Last Admin: 07/27/17 13:32 Dose: 25 mg Hydralazine HCl (Apresoline) 10 mg IVP Q6H PRN PRN Reason: Systolic Blood Pressure >160 Sodium Chloride (Sodium Chloride 0.9%) 1,000 mls @ 50 mls/hr IV .Q20H [facility] Last Admin: 07/25/17 21:35 Dose: Not Given Insulin Aspart (Novolog) 0 unit SC QID [facility] PRN Reason: Protocol Last Admin: 07/27/17 13:32 Dose: 1 unit Insulin Glargine (Lantus) 20 unit SC HS [facility] Last Admin: 07/26/17 21:28 Dose: 20 units Levetiracetam (Keppra) 750 mg PO Q12 [facility] Last Admin: 07/27/17 10:26 Dose: 750 mg Lisinopril (Zestril) 20 mg PO BID [facility] Last Admin: 07/27/17 10:27 Dose: 20 mg Nitroglycerin (Nitro-Bid 2% Oint) 1 ea TOP Q6 [facility] Last Admin: 07/27/17 12:24 Dose: Not Given Ondansetron HCl (Zofran Inj) 4 mg IVP Q4H PRN PRN Reason: Nausea/Vomiting Last Admin: 07/21/17 20:26 Dose: 4 mg Potassium Chloride (K-Dur 20 Meq Er Tab) 40 meq PO DAILY [facility] Last Admin: 07/27/17 10:27 Dose: 40 meq Rosuvastatin Calcium (Crestor) 40 mg PO HS [facility] Last Admin: 07/26/17 21:28 Dose: 40 mg - Labs Labs: 07/27/17 06:24 07/27/17 06:24 PT 10.1 SECONDS (9.7-12.2) 07/21/17 11:05 INR 0.9 07/21/17 11:05 APTT 29 SECONDS (21-34) 07/21/17 11:05 - Constitutional Appears: Non-toxic, No Acute Distress - Head Exam Head Exam: ATRAUMATIC, NORMAL INSPECTION, NORMOCEPHALIC - Eye Exam Eye Exam: EOMI, Normal appearance - ENT Exam ENT Exam: Mucous Membranes Moist, Normal Exam - Neck Exam Neck Exam: Full ROM. absent: Tenderness - Respiratory Exam Respiratory Exam: Clear to Ausculation Bilateral, NORMAL BREATHING PATTERN. absent: Rales, Rhonchi, Wheezes, Respiratory Distress, Stridor - Cardiovascular Exam Cardiovascular Exam: REGULAR RHYTHM, RRR. absent: Gallop, Rubs, Murmur - GI/Abdominal Exam GI & Abdominal Exam: Soft, Normal Bowel Sounds - Extremities Exam Extremities Exam: Full ROM, Normal Inspection - Neurological Exam Neurological Exam: Alert, Awake Additional comments: memory loss cannot state where he is, what day it is, what month it is - Psychiatric Exam Psychiatric exam: Normal Affect, Normal Mood - Skin Skin Exam: Intact, Normal Color, Warm Assessment and Plan - Assessment and Plan (Free Text) Assessment: (1) Intracranial hemorrhage 07/27: no change, patient stable 07/26: Remains confused, alert, follows some simple commands. able to state his birthday today. 07/24: At this time the patient still appears confused. Only follows some commands. Appears to have neglect right side. 07/23: The third CT last night and shows the left occipital area hemmorage is not changed from before 3 x 1.5 cm, and the other area in the right postior parietal lobe being 9 x 8mm, unchanged from previous. Avoid ASA, heparin, lovenox From before neurosurgery consultation was requested by ICU team. Neurosurgery recommends no intervention at this time. (2) Expressive aphasia 07/27: patient stable, patient still unable to answer many questions, patient also cannot write down the answers to a question- scribbled on the paper 07/26: for certain simple questions that can be answered yes or no patient answers quickly, for more complex questions it takes the patient time to try to answer. patient unable to answer certain questions 07/24: Speech is still very slow diet: pureed and thin liquids (3) Seizure Patient started on medication for seizures(keppra 750mg po q12) Possibly patient was noncompliant with the medication prior to this episode of for seizure versus CVA. (4) Diabetes 07/23: Hgb A1C-10. Per family it has been higher in the past (5) HTN 07/27: hypertension better controlled in 140s/ 80s 07/26: hydralazine 25mg po TID added on 07/26 and hydralazine 10 mg IVP q6h PRN if systolic >160 (added on 07/26) 07/25: Currently stable at this time, systolics mostly 120s to 140s 07/24: Continue to control BP to prevent worsening of hemorrhage (6) Encephalopathy acute 07/26: patient awake and alert but not oriented 07/24: More awake, but still confused 07/23: Continue to monitor. This maybe from CVA or from seizure activity. Patient is on keppra at this time <Reno Moss H - Last Filed: 07/27/17 16:44> Objective - Vital Signs/Intake and Output Vital Signs (last 24 hours): Temp Pulse Resp BP Pulse Ox 98.4 F 51 L 20 148/92 H 97 07/27/17 16:26 07/27/17 16:26 07/27/17 16:26 07/27/17 16:26 07/27/17 16:26 Intake and Output: 07/27/17 07/27/17 06:59 18:59 Output Total 1 Balance -1 - Medications Medications: Current Medications Famotidine (Pepcid) 20 mg IVP DAILY [facility] Last Admin: 07/27/17 11:55 Dose: Not Given Hydralazine HCl (Apresoline) 25 mg PO TID [facility] Last Admin: 07/27/17 13:32 Dose: 25 mg Hydralazine HCl (Apresoline) 10 mg IVP Q6H PRN PRN Reason: Systolic Blood Pressure >160 Sodium Chloride (Sodium Chloride 0.9%) 1,000 mls @ 50 mls/hr IV .Q20H [facility] Last Admin: 07/25/17 21:35 Dose: Not Given Insulin Aspart (Novolog) 0 unit SC QID [facility] PRN Reason: Protocol Last Admin: 07/27/17 13:32 Dose: 1 unit Insulin Glargine (Lantus) 20 unit SC [facility] Last Admin: 07/26/17 21:28 Dose: 20 units Levetiracetam (Keppra) 750 mg PO Q12 [facility] Last Admin: 07/27/17 10:26 Dose: 750 mg Lisinopril (Zestril) 20 mg PO BID [facility] Last Admin: 07/27/17 10:27 Dose: 20 mg Nitroglycerin (Nitro-Bid 2% Oint) 1 ea TOP Q6 [facility] Last Admin: 07/27/17 12:24 Dose: Not Given Ondansetron HCl (Zofran Inj) 4 mg IVP Q4H PRN PRN Reason: Nausea/Vomiting Last Admin: 07/21/17 20:26 Dose: 4 mg Potassium Chloride (K-Dur 20 Meq Er Tab) 40 meq PO DAILY [facility] Last Admin: 07/27/17 10:27 Dose: 40 meq Rosuvastatin Calcium (Crestor) 40 mg PO [facility] Last Admin: 07/26/17 21:28 Dose: 40 mg - Labs Labs: 07/27/17 06:24 07/27/17 06:24 PT 10.1 SECONDS (9.7-12.2) 07/21/17 11:05 INR 0.9 07/21/17 11:05 APTT 29 SECONDS (21-34) 07/21/17 11:05 Attending/Attestation - Attestation I have personally seen and examined this patient.: Yes I have fully participated in the care of the patient.: Yes I have reviewed all pertinent clinical information, including history, physical exam and plan: Yes Notes (Text): 07/27/17 16:37 Medical attending: Patient was seen and examined by me, agrees the above note by medical cash poster. On exam today the patient was able to walk with us out into the hallway. We reviewed his telemetry it appears stable at this time. He denied having any pain denied headaches, denied blurry vision. He states I "I'm doing okay" he does appear to be pleasant however as documented above in the resident note he still has a lot of memory difficulty. It takes him quite a bit of time to recall his correct birthdate is unable to tell me history to address. He is unable to tell me what hospital he is at Start this time were to continue to monitor his blood pressure. Yesterday we started hydralazine as well as continuing lisinopril Thank you very much, Reno Moss
[2017-07-27] MEDS: (Lantus) Insulin Glargine, Recombinant SC SCH (22:30)
[2017-07-28] MEDS: Nitroglycerin 2% Ointment Foilpak UD TOP SCH ×3 (00:08→11:56)
[2017-07-28 06:33] LABS: BASO % 0.3 % (0.0-2.0); EOS # 0.3 K/uL (0.0-0.7); EOS % 2.1 % (0.0-4.0); HEMATOCRIT 42.8 % (35.0-51.0); LYMPH # 4.5 K/uL (1.0-4.3); LYMPH % 37.9 % (20.0-40.0); MEAN CELL VOLUME 80.4 fL (80.0-94.0); MEAN CORPUSCULAR HEMOGLOBIN 26.4 pg (27.0-31.0); MEAN CORPUSCULAR HGB CONC 32.9 g/dL (33.0-37.0); MEAN PLATELET VOLUME 9.2 fL (7.2-11.7); RED CELL DISTRIBUTION WIDTH 14.1 % (11.5-14.5); WHITE BLOOD COUNT 11.9 K/uL (4.8-10.8)
[2017-07-28 07:28] LABS: ALB/GLOB RATIO 1.1 (1.0-2.1); ALKALINE PHOSPHATASE 83 U/L (38-126); ALT/SGPT 27 U/L (21-72); AST/SGOT 13 U/L (17-59); BILIRUBIN,TOTAL 1.6 mg/dL (0.2-1.3); BLOOD UREA NITROGEN 14 mg/dL (9-20); CALCIUM 8.9 mg/dl (8.6-10.4); CARBON DIOXIDE 30 mmol/L (22-30); CHLORIDE 101 mmol/L (98-107); GFR AFRICAN-AMERICAN > 60; GLUCOSE,RANDOM 101 mg/dL (75-110); PHOSPHOROUS 3.8 mg/dL (2.5-4.5); POTASSIUM 3.4 mmol/L (3.6-5.2); SODIUM 140 mmol/L (132-148)
[2017-07-28] MEDS: Potassium Chloride 20 mEq ER Tab PO SCH (09:27)
[2017-07-28] MEDS: (Novolog) Insulin Aspart, Recombinant 100 u/ml 10 ml vial SC SCH (09:28)
--- NOTE | 2017-07-28 09:30 | CP.PCM.PN ---
Subjective - Date & Time of Evaluation Date of Evaluation: 07/28/17 Objective - Vital Signs/Intake and Output Vital Signs (last 24 hours): Temp Pulse Resp BP Pulse Ox 98.5 F 52 L 18 158/87 H 98 07/28/17 07:20 07/28/17 07:20 07/28/17 07:20 07/28/17 07:20 07/28/17 07:20 Intake and Output: 07/28/17 07/28/17 06:59 18:59 Intake Total 400 Balance 400 - Medications Medications: Current Medications Famotidine (Pepcid) 20 mg IVP DAILY [facility] Last Admin: 07/28/17 09:28 Dose: Not Given Hydralazine HCl (Apresoline) 25 mg PO TID [facility] Last Admin: 07/28/17 09:27 Dose: 25 mg Hydralazine HCl (Apresoline) 10 mg IVP Q6H PRN PRN Reason: Systolic Blood Pressure >160 Hydrochlorothiazide (Hydrodiuril) 25 mg PO DAILY [facility] Insulin Aspart (Novolog) 0 unit SC QID [facility] PRN Reason: Protocol Last Admin: 07/28/17 09:28 Dose: Not Given Insulin Glargine (Lantus) 20 unit SC [facility] Last Admin: 07/27/17 22:30 Dose: 20 units Levetiracetam (Keppra) 750 mg PO Q12 [facility] Last Admin: 07/28/17 09:27 Dose: 750 mg Lisinopril (Zestril) 20 mg PO BID [facility] Last Admin: 07/28/17 09:27 Dose: 20 mg Nitroglycerin (Nitro-Bid 2% Oint) 1 ea TOP Q6 [facility] Last Admin: 07/28/17 05:47 Dose: 1 ea Ondansetron HCl (Zofran Inj) 4 mg IVP Q4H PRN PRN Reason: Nausea/Vomiting Last Admin: 07/21/17 20:26 Dose: 4 mg Potassium Chloride (K-Dur 20 Meq Er Tab) 40 meq PO DAILY [facility] Last Admin: 07/28/17 09:27 Dose: 40 meq Rosuvastatin Calcium (Crestor) 40 mg PO HS [facility] Last Admin: 07/27/17 22:29 Dose: 40 mg - Labs Labs: 07/28/17 06:18 07/28/17 06:18 PT 10.1 SECONDS (9.7-12.2) 07/21/17 11:05 INR 0.9 07/21/17 11:05 APTT 29 SECONDS (21-34) 07/21/17 11:05
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
[2017-07-28 16:29] VITALS: BP 156/90; PULSE 56; RESP 20; TEMP 97.8; O2SAT 100
--- NOTE | 2017-08-03 09:56 | PQF CVATIA ---
Dr. Moss, According to the ED and H&P notes the patient did not have a hemorrhagic stoke on admission. Patient was given TPA. Later on CT of head showed intracranial hemorrhages. Please clarify if the Intracranial Hemorrhage was an adverse effect of the TPA. Also, clarify if the patient was admitted with an Acute Infarct. CT of the head do not show any acute infarcts. There was no MRI done. Thank you This form is a permanent part of the medical record Clarification of your documentation is requested to better reflect the severity of illness and intensity of treatment of your patient. Indicators present: [] Altered mental status [] Aphasia [] Dysphagia [] Dysphasia [] Facial droop/numbness [] Gait disturbance [] Hemiparesis/plegia [] Speech impairment [] Weakness [] Neuro Consult [] CT/MRI Findings [] Other: [] Location in the medical record that reflects the above clinical findings: [] Treatment Provided: [] PHYSICIAN'S RESPONSE Based on your medical judgment of the clinical indicators outlined above, are you treating this patient for a known or suspected: [x] Acute Cerebrovascular Accident (CVA) Please specify type i.e.; embolic, hemorrhagic, ischemic. Patient was given TPA as per neurology, afterwards hemmorage was seen. If further questions please ask to neurology Please specify the artery involved if known. [] Transient Ischemic Accident (TIA) [] Prolonged reversible ischemic neurological disorder [] Other, please indicate: [] [] If unable to determine, please check the box, sign and date. Present On Admission (POA) Indicator: [] Present at the time of admission [] Not present at the time of admission [] Clinically Undetermined In responding to this query, please exercise your independent professional judgment. The fact that a question is asked does not imply that any particular answer is desired or expected. Thank you for your clarification on this documentation. If you have any questions please call:[ ] * Thank you, [ ] securities consultant RICHARD
--- NOTE | 2017-08-03 20:34 | CARD ---
APPROVED REPORT EKG Measurement Heart [id number] <Conclusion> Normal sinus rhythm Left axis deviation Abnormal ECG
--- NOTE | 2017-08-07 09:24 | PQF GENQUE ---
This form is a permanent part of the medical record Dr. Shrestha, Please clarify if the Intracerebral hemorrhage is an adverse effect of the tPA. Initially patient was admitted with a presumed ischemic stroke. Initial CT of head did not show hemorrhage. Subsequent CTs showed hemorrhage after administration of tPA. Thank you. Clarification of your documentation is requested to better reflect the severity of illness and intensity of treatment of your patient. Indicators present [] Specify: [] [] Specify: [] [] Specify: [] [] Specify: [] Location in the medical record that reflects the above clinical findings: [] Treatment Provided: [] PHYSICIAN'S RESPONSE Based on your medical judgment of the clinical indicators outlined above please clarify the following: [] Practitioner response [] If unable to determine, please check the box, sign and date. Present On Admission (POA) Indicator: [] Present at the time of admission [] Not present at the time of admission [] Clinically Undetermined In responding to this query, please exercise your independent professional judgment. The fact that a question is asked does not imply that any particular answer is desired or expected. Thank you for your clarification on this documentation. If you have any questions please call:[ ] * Thank you, [ ] communications engineer RICHARD
== END 2017-07-28 17:00 | disposition home or self-care (01) | DRG 61 ==
LOC: C.ER 10:22 → C.9I 13:15 → C.6T 07-25 23:22
PROVIDERS: ADMIT Hospitalist; ATTEND Hospitalist
DX: I63.9 Cerebral infarction, unspecified (principal); I61.1 Nontraumatic intracerebral hemorrhage in hemisphere, cortical; G93.40 Encephalopathy, unspecified; T45.615A Adverse effect of thrombolytic drugs, initial encounter; G81.91 Hemiplegia, unspecified affecting right dominant side; E11.65 Type 2 diabetes mellitus with hyperglycemia; I10 Essential (primary) hypertension; R29.810 Facial weakness; I69.320 Aphasia following cerebral infarction; G40.909 Epilepsy, unspecified, not intractable, without status epilepticus; R29.708 NIHSS score 8; Z91.14 Patient's other noncompliance with medication regimen; Z91.19 Patient's noncompliance with other medical treatment and regimen; Z79.899 Other long term (current) drug therapy; Z79.84 Long term (current) use of oral hypoglycemic drugs